=== PATIENT | female | born 1960 | race Caucasian/White ===

== ENCOUNTER 2018-12-01 10:44 | Emergency (ER) | payer MEDICAID | END 2018-12-01 12:20 | disposition home or self-care (01) | LOC: FTE 10:44 | DX: R21 Rash and other nonspecific skin eruption (principal); R40.2412 Glasgow coma scale score 13-15, at arrival to emergency department | CPT/HCPCS: 99282; Z7502 ==

== ENCOUNTER 2018-12-14 10:20 | Emergency (ER) | payer MEDICAID | END 2018-12-14 11:09 | disposition home or self-care (01) | LOC: FTE 10:20 | DX: L71.9 Rosacea, unspecified (principal); E11.9 Type 2 diabetes mellitus without complications | CPT/HCPCS: 99283; Z7502 ==

== ENCOUNTER 2019-01-16 07:54 | Emergency (ER) | payer MEDICAID ==
[2019-01-16 10:54] LABS: URINE BLOOD (Dip) POC Negative (NEGATIVE); URINE GLUCOSE (Dip) POC Negative (NEGATIVE); URINE KETONES (Dip) POC 1+ (NEGATIVE); URINE LEUKOCYTE EST (Dip) POC Negative (NEGATIVE); URINE NITRITE (Dip) POC Negative (NEGATIVE); URINE TOTAL PROTEIN POC Negative (NEGATIVE)
[2019-01-16] MEDS: PHENAZOPYRIDINE 100 MG TAB PO (11:01)
== END 2019-01-16 11:45 | disposition home or self-care (01) ==
LOC: E/R 07:54
DX: R30.0 Dysuria (principal); E11.9 Type 2 diabetes mellitus without complications; I10 Essential (primary) hypertension; Z79.84 Long term (current) use of oral hypoglycemic drugs
CPT/HCPCS: 81003; 99282

== ENCOUNTER 2019-02-06 17:52 | Emergency (ER) | payer MEDICAID ==
[2019-02-06] MEDS: HYDROCODONE/APAP (10/325) TAB PO (21:33)
[2019-02-06] MEDS: DIPHTH/TET/ACEL PERTUSS (ADULT) 0.5 ML VIAL IM* (21:34)
[2019-02-06] MEDS: SILVER SULFADIAZINE 1% 25 GM CR TOP (21:34)
== END 2019-02-06 22:06 | disposition home or self-care (01) ==
LOC: FTE 17:52
DX: T21.22XA Burn of second degree of abdominal wall, initial encounter (principal); I10 Essential (primary) hypertension; E11.9 Type 2 diabetes mellitus without complications; X10.0XXA Contact with hot drinks, initial encounter; Y92.9 Unspecified place or not applicable; Z23 Encounter for immunization; Z79.84 Long term (current) use of oral hypoglycemic drugs
CPT/HCPCS: 16020; 90471; 90715; 99283-25